=== PATIENT | male | born 1960 | race Two or more races ===

== ENCOUNTER 2016-12-27 12:50 | Emergency (ER) | payer OTHER ==
--- NOTE | ~2016-12-27 | US67 ---
[facility] A Service of [facility] RADIOLOGY TEXT RESULTS PATIENT: MOLLY MENDOZA LOCATION: [facility] : 60 UNIT #: [id number] AGE: [address]: Keily Tang MD SEX: M ORDER DR: [id number] [facility] [address] [place], [place] [address] [id number] E MR#: [id number] Acc #: [id number] NAME: MOLLY MENDOZA : 1960 SEX: M STUDY DATE/TIME: 12/27/2016 14:09 UNIT: [facility] ROOM: STUDY DESCRIPTION: US Gallbladder Attending Physician: Keily Tang M.D. Ordering Physician: Keily Tang M.D. Primary Care Physician: Sigifredo Boyd M.D. MEDICAL IMAGING REPORT This report is preliminary unless electronic signature is present EXAM Gallbladder ultrasound 12/27/2016 HISTORY Nausea, vomiting and abdominal pain for 1 week. FINDINGS The liver demonstrates an increase in echotexture with attenuation of the ultrasound beam characteristic of fatty infiltration. No cystic or solid mass lesions were seen in the liver. The intra and extrahepatic bile ducts are not dilated. The gallbladder is normal with no evidence of cholelithiasis, wall thickening or pericholecystic fluid. The common duct measures 3 mm. The pancreas and right kidney are normal. IMPRESSION Fatty infiltration of the liver. Otherwise negative right upper quadrant ultrasound. Dictated by... Rudy Samuel M.D. THIS IS AN ELECTRONICALLY VERIFIED REPORT Rudy Samuel M.D. at 12/28/2016 8:27 AM KRT/to TD: 12/27/2016 14:03 JOB #: [id number] MEDICAL IMAGING REPORT Page 1 of 1 COPY
[2016-12-27 12:32] LABS: BASOPHIL% 0.6 % (0-2.5); EOSINOPHIL# 0.2 X10e3 (0-0.7); EOSINOPHIL% 2.7 % (0.0-7.0); HEMATOCRIT 41.8 % (38.0-50.0); HEMOGLOBIN 14.1 gm/dL (13.0-16.0); LYMPHOCYTE# 1.7 X10e3 (1.0-3.5); LYMPHOCYTE% 28.7 % (17.0-45.0); MEAN CELL VOLUME 85.2 FL (83-96); MEAN CORPUSCULAR HEMOGLOBIN 28.7 PG (28-34); MEAN CORPUSCULAR HGB CONC 33.7 g/dL (30-36); MEAN PLATELET VOLUME 9.4 FL (6.5-11.5); MONOCYTE# 0.3 X10e3 (0-1.0); MONOCYTE% 5.7 % (3.0-12.0); NEUTROPHIL# 3.7 X10e3 (1.5-7.1); NEUTROPHIL% 62.3 % (40-75); PLATELET COUNT 172 X10e3 (140-420); RED CELL DISTRIBUTION WIDTH 13.9 % (11.0-15.5)
[2016-12-27 12:36] LABS: DIFF IND NO
[2016-12-27 12:44] LABS: URINE SOURCE CLEAN CATCH
[2016-12-27 12:49] LABS: URINE APPEARANCE CLEAR; URINE BILIRUBIN NEG (NEG); URINE BLOOD NEG (NEG); URINE COLOR YELLOW; URINE GLUCOSE NEG (NEG); URINE KETONE NEG (NEG); URINE LEUKOCYTE ESTERASE NEG (NEG); URINE NITRATE NEG (NEG); URINE PROTEIN NEG (NEG); URINE SPECIFIC GRAVITY 1.024 (1.003-1.035); URINE UROBILINOGEN 0.2 MG/DL (NEG)
[2016-12-27 12:55] LABS: CULTURE INDICATED? NO
[2016-12-27 13:06] LABS: ALBUMIN SERUM 4.1 g/dL (3.5-5.0); ALKALINE PHOSPHATASE 39 U/L (32-92); ALT (SGPT) 29 U/L (10-40); AMYLASE 23 U/L (0-46); AST (SGOT) 23 U/L (10-42); BILIRUBIN,TOTAL 0.5 mg/dL (0.2-2.0); BLOOD UREA NITROGEN 16 mg/dL (9-23); CARBON DIOXIDE 26 mmol/L (22-31); CHLORIDE 107 mmol/L (100-111); CREATININE SERUM 0.8 mg/dL (0.6-1.4); GLOM FILT RATE Estimated 99.9 mL/min (>60); GLUCOSE FASTING 138 mg/dL (70-110); LIPASE 25 U/L (22-51); POTASSIUM 3.7 mmol/L (3.5-5.1); PROTEIN TOTAL SERUM 6.8 g/dL (6.0-8.3); SODIUM 140 mmol/L (135-145)
[2016-12-27 13:07] LABS: BILIRUBIN, DIRECT <0.1 mg/dL (0.0-0.2); BILIRUBIN,INDIRECT 0.4 mg/dL (0.0-0.9)
== END 2016-12-27 14:30 | disposition home or self-care (01) ==
LOC: CED 12:50
PROVIDERS: Emergency Medicine
DX: R10.11 Right upper quadrant pain (principal); R11.2 Nausea with vomiting, unspecified; R51 Headache; F41.9 Anxiety disorder, unspecified
CPT/HCPCS: 36415; 76705; 80048; 80076; 81003; 82150; 83690; 85025; 96361; 96374; 96375; 99284; J2270; J2405